=== PATIENT | male | born 1950 | race African-American/Black ===

== ENCOUNTER 2017-06-01 02:00 | Inpatient (IN) | payer OTHER, BC ==
[2017-06-01] VITALS (9 sets, daily range): BP systolic 127–162; BP diastolic 70–92
[~2017-06-01] VITALS: Ht 160 cm; Wt 65.6 kg
--- NOTE | ~2017-06-01 | EKG ---
[address] [place] [address] ELECTROCARDIOGRAM REPORT Name: JENNIFER DUMAS Room #: 206-P ADM IN M.R.#: [id number] Admission: 06/01/17 Attend Phys: Felix Peng DO Discharge: Date of : 48 Report #: [id number] THIS REPORT FOR: //name// [facility] Test Date: 2017-06-02 Test Time: 06:32:57 Pat Name: JENNIFER DUMAS Department: Room: 206 P Gender: M Mechanical Striper: MONI : 1950 Requested By: Reid Thurman Order Number: [id number] MD: Los Silva Measurements Intervals [place] Rate: 74 P: 53 [place]: 181 QRS: -34 QRSD: 96 T: 23 QT: 382 QTc: 424 Interpretive Statements Sinus rhythm Left ventricular hypertrophy Nonspecific T wave abnormality Compared to ECG 06/01/2017 02:06:44 no significant change was found Electronically Signed On 06-02-2017 8:43:55 VIDEO PRODUCTION INTERN by Los Silva [email or web address] <ELECTRONICALLY SIGNED> By: Los Silva MD, [facility] 06/02/17 0843 1 1 Los Silva MD, [facility] /EPI
--- NOTE | ~2017-06-01 | EKG ---
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: tona : 1950 Requested By: Reid Thurman Order Number: [id number] MD: Los Silva Measurements Intervals [place] Rate: 57 P: -46 [place]: 202 QRS: -29 QRSD: 97 T: -5 QT: 415 QTc: 404 Interpretive Statements Sinus bradycardia Left ventricular hypertrophy Borderline T abnormalities, inferior leads Compared to ECG 06/01/2017 02:06:44 T-wave abnormality less pronounced Electronically Signed On 06-02-2017 8:39:32 PA[employer]MASTER [employer] by Los Silva [email or web address] <ELECTRONICALLY SIGNED> By: Los Silva MD, [facility] 06/02/17 0839 180 180 Los Silva MD, [facility] /EPI
--- NOTE | ~2017-06-01 | EKG ---
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: ROCHELLE : 1950 Requested By: Maryuri Foss Order Number: [id number] MD: Los Silva Measurements Intervals [place] Rate: 81 P: 50 [place]: 179 QRS: -24 QRSD: 96 T: 117 QT: 404 QTc: 469 Interpretive Statements Sinus rhythm RSR' in V1 or V2, probably normal variant Left ventricular hypertrophy Nonspecific T abnormalities, lateral leads Compared to ECG 05/23/2015 13:55:17 No significant change was found Electronically Signed On 06-01-2017 8:41:34 LOOM MECHANIC by Los Silva [email or web address] <ELECTRONICALLY SIGNED> By: Los Silva MD, [facility] 06/01/17 0841 0206 0206 Los Silva MD, [facility] /EPI
--- NOTE | ~2017-06-01 | HC ---
[facility] [place] [address] CONSULTATION Name: JENNIFER DUMAS Room #: 206-P ADM IN M.R.#: [id number] Admission: 06/01/17 Attend Phys: Felix Peng DO Discharge: Date of : 48 Report #: [id number] THIS REPORT FOR: //name// CC: Felix Sam MD DATE OF SERVICE: 06/01/2017 HISTORY OF PRESENT ILLNESS: The patient is a 67-year-old single black male who I was asked to seen in the hospital today after he complained of chest pain. The patient has an extensive past medical history. He had his first coronary stent placed in approximately 2013, at [facility] by my partner Dr. Connell. He then had 2 additional coronary stents placed to the circumflex artery in July 2016. He last saw Dr. Connell in January 2017. The patient is not very active because of chronic back pain. He was doing well until last night, he was at home, felt a pain in his chest, went into his throat. Denied any shortness of breath, diaphoresis, or nausea. He has had no recent fever, cough, or blood in stool. He denied any trauma to his chest. He came to the emergency room and was given nitroglycerin and morphine. The pain eventually resolved. I was asked to see him for further evaluation and treatment. PAST MEDICAL HISTORY: Significant for appendectomy, back surgery, hypertension, diabetes, and hyperlipidemia. MEDICATIONS: Consist of aspirin, Lipitor, glipizide, hydrochlorothiazide, Prinivil, metformin, metoprolol, and Effient. ALLERGIES: He has an intolerance to NIACIN. FAMILY HISTORY: His grandmother had heart disease. SOCIAL HISTORY: He is , lives by himself in [place], [place] with a son. No smoking, no alcohol abuse. 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 REVIEW OF SYSTEMS: He has had no history of stroke, asthma, peptic ulcer disease, liver disease, or kidney disease. He has chronic back pain. He wears glasses. No psychiatric illness. No chronic skin condition. PHYSICAL EXAMINATION: GENERAL: Revealed a middle-aged male, lying in bed, he appeared in no distress. VITAL SIGNS: He had a blood pressure of 170/80, his pulse is 70, and he is afebrile. HEENT: He was anicteric. Conjunctivae are pink. Mucous membranes are moist. NECK: Veins do not appear distended. No carotid bruits. [facility] [address] [place] [address] CONSULTATION Name: JENNIFER DUMAS Room #: 206-P [facility] IN M.R.#: [id number] Admission: 06/01/17 Attend Phys: Felix Peng DO Discharge: Date of : 48 Report #: [id number] CHEST: Clear to auscultation. HEART: Regular rate and rhythm. ABDOMEN: Soft, nontender. EXTREMITIES: Dorsalis pedis pulse 2+ in the right, cannot be palpated on the left. SKIN: Warm and dry. NEUROLOGIC: Nonfocal. LYMPH: No adenopathy. MUSCULOSKELETAL: No joint effusions. his chart, unfortunately the ECG from last night showed a sinus rhythm, early transition, nonspecific ST and T-wave changes compared to previous ECG from May 2015. The T-wave changes are new. Workup in the emergency room last night, he had a portable chest x-ray that showed normal heart size, clear lung kasper. His lab work, sodium 138, potassium 4.3, his BUN was 24, creatinine 1.5, and glucose was 206. Troponin 0.04. His white blood cell count 8.7 and hemoglobin 12.1. IMPRESSION AND RECOMMENDATIONS: 1. Possible unstable angina. Recommend repeat cardiac catheterization. 2. History of coronary artery stents. The patient is on aspirin and Effient. 3. Hypertension. The patient is on a beta aruna and MEEK inhibitor. 4. Diabetes. 5. Hyperlipidemia. The patient is on a statin drug. 6. Chronic kidney disease. 7. Chronic back pain. <ELECTRONICALLY SIGNED> By: Reid Thurman MD, [facility] 06/02/17 0829 0829 1153 Reid Thurman MD, FAC /nt
--- NOTE | ~2017-06-01 | CATHLAB ---
[facility] [email or web address] [address] INVASIVE PROCEDURE REPORT Name: JENNIFER DUMAS Room #: 206-P [facility] IN [facility].#: [id number] Admission: 06/01/17 Attend Phys: Felix Peng, Discharge: 06/02/17 Date of : 48 Date of Service: 06/02/17 1205 Report #: [id number] THIS REPORT FOR: //name// APPROVED REPORT Patient Details Patient Status: In-Patient Room #: The patient is a 67 year-old male Event Personnel Reid Thurman Living Manager, Tasneem Romo, Milagros Murdock Knisely, Ceola RN RN, Luis Carbone RN, Marya Simon RN RN, Peggy Hendrix RN configuration specialist Performed Art Access - R radial artery Art Access - R femoral artery* 76658 Initial Mod Sed Same Phys/QHP Gr5y 339960 Left Heart Cath w/or w/o Coronaries [id number] [facility] [address] Place w/wo Plasty Single CIRC 970380 Hemostasis w/ Angioseal Hemostasis with Hemoband Indication Abnormal ECG, Unstable angina , Chest pain Risk Factors Arterial Hypertension, Hypercholesterolemia, Coronary Artery Disease, Diabetes Previous Procedures/Diagnoses Previous PCI Admission/Lab Medications/Medications given during procedure Heparin Unfract. Procedure Narrative The patient was brought electively to the Cardiac Catheterization Laboratory and was prepped and draped in a sterile manner. The Right wrist^ was infiltrated with 1% Lidocaine subcutaneous anesthesia. A PINNACLE 6FR Sheath #[id number] sheath was inserted into the right radial artery. Coronary angiography was performed using coronary diagnostic catheters. The right coronary system was accessed and visualized with a JR 4 catheter. The left coronary system was accessed and visualized with a JL 3.5 catheter. Left ventricular/Aortic Valve gradient assessed via catheter pullback. Pre-demployment femoral angiogram was performed . Closure device was deployed with a 6 Fr Angioseal. The [facility] [employer] [place] [address] INVASIVE PROCEDURE REPORT Name: JENNIFER DUMAS Room #: 206-P [facility] IN [facility].#: [id number] Admission: 06/01/17 Attend Phys: Felix Peng, Discharge: 06/02/17 Date of : 48 Date of Service: 06/02/17 1205 Report #: [id number] patient tolerated the procedure well and there were no complications associated with the procedure. There was no hematoma. Diagnostic cath performed from the right radial artery. However, the takeoff of the left main was difficult to cannulate, and the stenosis represented restenosis of a birfurcation stent. Therefore it was decided to perform intervention from the right femoral artery. A vascband was placed over the right radial artery at the end of the procedure. Intraoperative Conscious Sedation Sedation start time: 15:58 Case end Time: 17:28 Fentanyl 25 mcg Versed 1.5 mg Fluoro Time: 15.55 minutes Dose: DAP 60017.30 cGycm2 1418 mGy Contrast Type and Amount: Omnipaque 250 ml Coronary Angiography The patient's coronary anatomy is right dominant. Diagnostic Cath Left Main 0% stenosis LAD 0% stenosis Circumflex Long stent noted in the mid circumflex that crossed the takeoff of a large second marginal branch. 60% restenosis noted of the distal portion of the stent OM2 Ostial stent had 99% restenosis Right Coronary 60% proximal and 60% mid stenosis noted Left Ventriculography Left Ventriculography was not performed. Hemodynamics The aortic pressure is 109/57 mmHg with a mean of 83 mmHg. The left ventricular pressure is 132/17 mmHg with a mean of mmHg. The left ventricular end diastolic pressure is 24 mmHg. There was no gradient across the aortic valve upon pullback. Pullback from the left ventricle to the aorta revealed no gradient across the aortic valve. PCI Technique Lesion Anticoagulation was achieved with Heparin. the patient had been on effient and asa chronically Percutaneous coronary intervention was performed on the second obtuse marginal branch segment. The lesion stenosis prior to intervention was 99% with MARSHA 3 flow. [employer] [address] [place] [address] INVASIVE PROCEDURE REPORT Name: ALESIAJENNIFER ELAINA Room #: 206-P [facility] IN M.R.#: [id number] Admission: 06/01/17 Attend Phys: Felix Peng, Discharge: 06/02/17 Date of : 48 Date of Service: 06/02/17 1205 Report #: [id number] XB 3 #[id number] Guide Catheter was used to engage the lm ostium. A BMW Wire .014 X 190CM #[id number] Interventional Guidewire was used to cross the lesion. BALLOON DILATION A Balloon catheter TREK RX 2.50 X 8 #[id number] was inserted and inflated up to 8.00atm for 7seconds. Repeat angiography revealed the following post-dilatation results: 60% stenosis. Additional Inflation: 10.00atm for 10seconds. Additional Inflation: 10.00atm for 11seconds. STENT DEPLOYMENT A drug-eluting stent RESOLUTE RX 2.5 X 14 #[id number] was inserted and inflated up to 8.00atm for 15seconds. Repeat angiography revealed the following post-stent deployment results: 0% stenosis. After stent placement in ostium of the second marginal branch, it was decided to perform kissing balloon angioplasty of the circumflex and marginal branch POST STENT DEPLOYMENT BALLOON DILATION A Balloon catheter TREK RX 2.5 X 12 #[id number] was inserted and inflated up to 8.00atm for 16seconds. Repeat angiography revealed the following post-dilatation results: 0% stenosis. Additional Inflation: 8.00atm for 15seconds. Final angiography reveals 0 % stenosis with MARSHA 3 flow. Conclusion 1. 60% restenosis of a stent in the mid circumflex artery, and 99% restenosis of a stent in the ostium of the second marginal branch 2. 60% proximal and 60% mid stenosis of the RCA 3. Following placement of a new drug eluting stent in the ostium of the second marginal branch, and final kissing balloon angioplasty of the circumflex and marginal branch, there was 0% residual stenosis Recommendations Cardiac Rehabilitation Referral Aggressive Medical Therapy <ELECTRONICALLY SIGNED> By: Reid Thurman MD, [facility] 06/02/17 1205 04 04 Reid Thurman MD, FACC /INF
[~2017-06-01 02:00] MED LIST: ACTOS 45 MG45 M1 PO; ANTIVERT25 MG PO; ASPIR 8181 MG PO; CO Q-1010 MG PO; CO Q-1050 MG PO; D3 DOTS2000 UNIT PO; EFFIENT10 MG PO; FISH OIL 1,001000 M2 PO; FISHOIL PO; GLUCOPHAGE1000 MG; GLUCOPHAGE1000 MG PO; GLUCOTROL XL10 MG PO; GLUCOTROL10 MG PO; HYDROCHLOROTH12.5 MG PO; IMDUR 30 MG TAB30 M1 PO; IMDUR 60 MG TAB60 M1 PO; IMDUR30 MG PO; KRILL OIL 3001 EACH PO; KRILL OIL500 MG PO; LIPITOR20 MG PO; LISINOPRIL20 MG PO; NITROGLYCERIN0.4 MG SL; NITROSTAT0.4 MG SUBLING; ONGLYZA5 MG PO; SIMVASTATIN40 MG PO; TOPROL XL50 MG PO; TYLENOL325 MG PO; VITAMIN C1000 MG PO; VITAMIN C120 GM PO; VITAMIN C500 M1 PO; VITAMIN D32000 UNI1 PO; VITAMINC500 PO; XANAX 0.5 MG0.5 M1 PO; ZETIA10 MG PO; ZOCOR20 MG PO; ZOFRAN ODT4 MG PO
[2017-06-01 02:42] LABS: ABSOLUTE NEUTROPHILS 3.3 thou/uL (1.4-8.2); BASOPHILS 0.9 % (0.0-2.0); EOSINOPHILS 6.5 % (0.0-3.0); HEMATOCRIT 33.7 % (42.0-52.0); HEMOGLOBIN 12.1 gm/dL (14.0-18.0); LYMPHOCYTES 47.4 % (24.0-44.0); MCH 29.7 pg (26.0-34.0); MCHC 35.8 g/dL (28.0-37.0); MCV 83.1 fL (80.0-100.0); MONOCYTES 7.4 % (1.0-8.0); PLATELET COUNT 218 thou/uL (150-400); POLYS 37.8 % (36.0-66.0); RBC 4.06 mil/uL (4.50-6.00); RDW 14.5 % (10.5-14.5); WBC 8.7 thou/uL (4.0-11.0)
[2017-06-01 02:46] LABS: ANION GAP 11 mmol/L (7-16); BUN 24 mg/dL (7-18); CALCIUM 9.3 mg/dL (8.5-10.1); CHLORIDE 102 mmol/L (98-107); CO2 25 mmol/L (21-32); CREATININE 1.5 mg/dL (0.7-1.3); GLUCOSE 206 mg/dL (74-106); POTASSIUM 4.3 mmol/L (3.5-5.1); SODIUM 138 mmol/L (136-145)
[2017-06-01] MEDS ORDERED: IMDUR 30 MG TAB30 M1 PO (02:52)
[2017-06-01] MEDS ORDERED: METFORMIN HCL500 MG PO (02:53)
[2017-06-01 02:55] LABS: TROPONIN-I < 0.04 ng/mL (<0.06)
[2017-06-01] MEDS ORDERED: EFFIENT10 MG PO (02:55)
[2017-06-01] MEDS ORDERED: LIPITOR 20 MG T20 M1 PO (04:06)
[2017-06-02 02:59] LABS: HEMATOCRIT 32.5 % (42.0-52.0); HEMOGLOBIN 11.5 gm/dL (14.0-18.0); MCH 29.4 pg (26.0-34.0); MCHC 35.5 g/dL (28.0-37.0); MCV 82.6 fL (80.0-100.0); RBC 3.93 mil/uL (4.50-6.00); RDW 14.2 % (10.5-14.5); WBC 8.6 thou/uL (4.0-11.0)
[2017-06-02 03:17] LABS: CALCIUM 8.5 mg/dL (8.5-10.1); CREATININE 1.3 mg/dL (0.7-1.3); POTASSIUM 4.3 mmol/L (3.5-5.1); TROPONIN-I 0.15 ng/mL (<0.06)
[2017-06-02 05:47] VITALS: BP 160/73
[2017-06-02 07:39] VITALS: BP 157/82
[2017-06-02 10:48] VITALS: BP 157/82
== END 2017-06-02 11:09 | disposition home or self-care (01) | DRG 246 ==
LOC: ER 02:00 → EROBS 03:20 → 2N 03:20
PROVIDERS: Emergency Medicine; Nurse Practitioner Family
PROC: 027034Z Dilation of Coronary Artery, One Artery with Drug-eluting Intraluminal Device, Percutaneous Approach (ICD-10-PCS; principal; 2017-06-02)
PROC: 4A023N7 Measurement of Cardiac Sampling and Pressure, Left Heart, Percutaneous Approach (ICD-10-PCS; principal; 2017-06-02)
PROC: B2111ZZ Fluoroscopy of Multiple Coronary Arteries using Low Osmolar Contrast (ICD-10-PCS; principal; 2017-06-02)
DX: T82.855A Stenosis of coronary artery stent, initial encounter (principal); N17.0 Acute kidney failure with tubular necrosis; I25.110 Atherosclerotic heart disease of native coronary artery with unstable angina pectoris; E11.22 Type 2 diabetes mellitus with diabetic chronic kidney disease; Z90.49 Acquired absence of other specified parts of digestive tract; E78.5 Hyperlipidemia, unspecified; N18.9 Chronic kidney disease, unspecified; I12.9 Hypertensive chronic kidney disease with stage 1 through stage 4 chronic kidney disease, or unspecified chronic kidney disease; G89.29 Other chronic pain; M54.9 Dorsalgia, unspecified; Z88.1 Allergy status to other antibiotic agents; Z82.49 Family history of ischemic heart disease and other diseases of the circulatory system; Z95.5 Presence of coronary angioplasty implant and graft
CPT/HCPCS: 10081

== ENCOUNTER 2018-04-03 12:11 | Inpatient (IN) | payer OTHER, BC ==
[~2018-04-03] VITALS: Ht 160 cm; Wt 69.4 kg
[~2018-04-03 12:11] MED LIST changes: +LIPITOR 20 MG T20 M1 PO; +METFORMIN HCL500 MG PO; +VITAMIN D1000 UNI1 PO; -VITAMIN D32000 UNI1 PO
[2018-04-03 12:12] VITALS: BP 165/78
[2018-04-03 12:44] LABS: ABSOLUTE NEUTROPHILS 2.7 thou/uL (1.4-8.2); BASOPHILS 1.2 % (0.0-2.0); EOSINOPHILS 6.5 % (0.0-3.0); HEMATOCRIT 33.3 % (42.0-52.0); HEMOGLOBIN 11.8 gm/dL (14.0-18.0); LYMPHOCYTES 38.7 % (24.0-44.0); MCHC 35.5 g/dL (28.0-37.0); MCV 84.3 fL (80.0-100.0); MONOCYTES 7.6 % (1.0-8.0); PLATELET COUNT 221 thou/uL (150-400); RBC 3.95 mil/uL (4.50-6.00); RDW 13.5 % (10.5-14.5); WBC 5.9 thou/uL (4.0-11.0)
[2018-04-03 12:52] LABS: ANION GAP 8 mmol/L (7-16); BUN 22 mg/dL (7-18); CALCIUM 9.4 mg/dL (8.5-10.1); CHLORIDE 100 mmol/L (98-107); CO2 29 mmol/L (21-32); CREATININE 1.6 mg/dL (0.7-1.3); GLUCOSE 325 mg/dL (74-106); POTASSIUM 4.3 mmol/L (3.5-5.1); SODIUM 137 mmol/L (136-145)
[2018-04-03 13:02] LABS: ALBUMIN 3.8 g/dL (3.4-5.0); MAGNESIUM 1.3 mg/dL (1.8-2.4); SGOT 15 U/L (15-37); SGPT 17 U/L (30-65); TOTAL BILIRUBIN 0.5 mg/dL (<0.1-1.0); TOTAL PROTEIN 7.3 g/dL (6.4-8.2); TROPONIN-I <0.06 ng/mL (<0.06)
[2018-04-03 15:24] VITALS: BP 127/68
--- NOTE | 2018-04-03 15:25 | NUR ---
HAND OFF FAXED
--- NOTE | 2018-04-03 15:42 | 2DMMODE ---
[facility] [address] [place] [address] 2 D/M-MODE ECHOCARDIOGRAM Name: JENNIFER DUMAS Room #: 170-1 [facility] IN [facility]#: [id number] Admission: 04/03/18 Attend Phys: Mannie Linda, Discharge: Date of : 48 Date of Service: 04/03/18 1541 Report #: [id number] THIS REPORT FOR: //name// APPROVED REPORT Study performed: 04/03/2018 14:33:15 EXAM: Comprehensive 2D, Doppler, and color-flow Echocardiogram Patient Location: In-Patient Room #: ER 1 Status: routine BSA: 1.71 HR: 65 bpm BP: 138/62 mmHg Rhythm: NSR Other Information Study Quality: Excellent Indications Diabetes CAD Chest Pain Hypertension/HDD 2D Dimensions RVDd: 24.23 mm IVSd: 10.82 (7-11mm) LVOT Diam: 21.75 (18-24mm) LVDd: 38.44 mm PWd: 9.96 (7-11mm) Ascending Ao: 28.74 (22-36mm) LVDs: 25.92 (25-40mm) Aortic Root: 28.88 mm IVC: 6.00 mm Volumes Left Atrial Volume (Systole) Single Plane 4CH: 41.36 mL Single Plane 2CH: 32.47 mL LA ESV Index: 23.00 mL/m2 Aortic Valve AoV Peak To.: 1.11 m/s AO Peak Gr.: 4.89 mmHg LVOT Max P.63 mmHg LVOT Max V: 0.95 m/s ZULLY Vmax: 3.20 cm2 Mitral Valve [facility] [address] [place] [address] 2 D/M-MODE ECHOCARDIOGRAM Name: ALESIAJENNIFER DELANEY Room #: 170-1 [facility] IN [facility]#: [id number] Admission: 04/03/18 Attend Phys: Mannie Linda, Discharge: Date of : 48 Date of Service: 04/03/18 1541 Report #: [id number] E/A Ratio: 0.7 MV Decel. Time: 214.33 ms MV E Max To.: 0.65 m/s MV A To.: 0.90 m/s MV PHT: 62.16 ms IVRT: 107.27 ms Pulmonary Valve PV Peak To.: 0.87 m/s PV Peak Gr.: 3.04 mmHg Pulmonary Vein P Vein S: 0.43 m/s P Vein A: 0.40 m/s P Vein D: 0.30 m/s P Vein A Dur.: 101.5 msec P Vein S/D Ratio: 1.43 Tricuspid Valve RAP Estimate: 5.00 mmHg Left Ventricle The left ventricle is normal size. There is normal left ventricular wall thickness. The left ventricular systolic function is normal. The left ventricular ejection fraction is within the normal range. LVEF is 55%. Mild diastolic dysfunction is present (impaired relaxation pattern). Right Ventricle The right ventricle is normal size. The right ventricular systolic function is normal. Atria The left atrium size is normal. The right atrium size is normal. Aortic Valve Mild aortic valve sclerosis. Trace aortic regurgitation. There is no aortic valvular stenosis. Mitral Valve The mitral valve is normal in structure. Trace mitral regurgitation. No evidence of mitral valve stenosis. Tricuspid Valve The tricuspid valve is normal in structure. Trace tricuspid regurgitation. Unable to assess PA pressure. Pulmonic Valve [facility] [address] [place] [address] 2 D/M-MODE ECHOCARDIOGRAM Name: JENNIFER DUMAS Room #: 170-1 ADM IN M.R.#: [id number] Admission: 04/03/18 Attend Phys: Mannie Linda, Discharge: Date of : 48 Date of Service: 04/03/18 1541 Report #: [id number] The pulmonary valve is normal in structure. Trace to mild pulmonic regurgitation. Great Vessels The aortic root is normal in size. IVC is normal in size and collapses >50% with inspiration. Pericardium There is no pericardial effusion. <Conclusion> The left ventricular systolic function is normal. The left ventricular ejection fraction is within the normal range. <ELECTRONICALLY SIGNED> By: Reid Thurman MD, [facility] 04/03/18 1541 1541 154 Reid Thurman MD, FAC /INF
[2018-04-03 15:45] VITALS: BP 121/60
[2018-04-03 15:55] LABS: ALBUMIN 3.8 g/dL (3.4-5.0); TOTAL PROTEIN 7.3 g/dL (6.4-8.2)
[2018-04-03 16:03] LABS: INR 1.1
[2018-04-03 16:21] LABS: TSH 1.575 uIU/mL (0.358-3.740)
[2018-04-03 17:12] VITALS: BP 134/70
[2018-04-03 18:10] LABS: HEMATOCRIT 32.8 % (42.0-52.0); HEMOGLOBIN 11.7 gm/dL (14.0-18.0); MCH 29.9 pg (26.0-34.0); MCHC 35.6 g/dL (28.0-37.0); MCV 83.9 fL (80.0-100.0); RBC 3.91 mil/uL (4.50-6.00); RDW 13.9 % (10.5-14.5); WBC 6.5 thou/uL (4.0-11.0)
--- NOTE | 2018-04-03 18:17 | NUR ---
TO THE UBNIT FROM THE ER - ADMISSION ASSESSMENT CHARTED - PT TO THE OVEN DAUBER IN THE AM - NO CO'S OF PAIN OR NAUSEA. APPEARS TO BE COMFROTABLE AT THE PRESENT TIME.
[2018-04-03 19:36] VITALS: BP 142/68
[2018-04-03 23:38] VITALS: BP 166/72
[2018-04-04 03:04] VITALS: BP 156/76
[2018-04-04 05:22] LABS: HEMATOCRIT 33.5 % (42.0-52.0); HEMOGLOBIN 11.5 gm/dL (14.0-18.0); MCH 29.1 pg (26.0-34.0); MCHC 34.4 g/dL (28.0-37.0); MCV 84.5 fL (80.0-100.0); RBC 3.96 mil/uL (4.50-6.00); RDW 13.4 % (10.5-14.5); WBC 6.9 thou/uL (4.0-11.0)
[2018-04-04 05:39] LABS: CALCIUM 9.5 mg/dL (8.5-10.1); CREATININE 1.6 mg/dL (0.7-1.3); MAGNESIUM 1.7 mg/dL (1.8-2.4); POTASSIUM 3.9 mmol/L (3.5-5.1)
[2018-04-04 05:53] LABS: CHOLESTEROL 101 mg/dL (<200); HDL CHOLESTEROL 30 mg/dL (>40); LDL CHOLESTEROL 49 mg/dL (<100); TC:HDL 3.4 Ratio (Not establshd); TRIGLYCERIDE 112 mg/dL (<150); VLDL 22 mg/dL (<40)
[2018-04-04 06:00] LABS: SERUM ASSESSMENT Clear
--- NOTE | 2018-04-04 06:25 | NUR ---
ASSUMED PT CARE AT 1900 WITH BEDSIDE REPORT COMPLETED. NO SIGN OF DISTRESS NOTED IN PT. PT IS ALERT AND ORIENTED WITH FAMILY AT BEDSIDE. PT DENIES ANY CHEST PAIN. SCHEDULED MED ADMINISTERED TO PT, PT IS NPO FOR POSSIBLE CARDIAC CATH. DENIES ANY NEEDS, ASSESSMENT COMPLETED. DENIES ANY FURTHER NEED AT THIS TIME
[2018-04-04 08:00] VITALS: BP 148/75
--- NOTE | 2018-04-04 08:12 | EKG ---
[address] [address] ELECTROCARDIOGRAM REPORT Name: JUANCARLOSJENNIFER Room #: 200-I ADM IN M.R.#: [id number] Admission: 04/03/18 Attend Phys: Mannie iLnda MD Discharge: Date of : 48 Report #: [id number] THIS REPORT FOR: //name// [facility] ED Test Date: 2018-04-03 Test Time: 12:16:14 Pat Name: JENNIFER DUMAS Department: Room: 200 Gender: M Liberal Arts Dean: AKOSUA : 1950 Requested By: Juancarlos Viera Order Number: [id number] MD: Los Silva Measurements Intervals [place] Rate: 70 P: -57 [place]: 191 QRS: -31 QRSD: 99 T: 14 QT: 378 QTc: 408 Interpretive Statements Sinus or ectopic atrial rhythm Left ventricular hypertrophy Compared to ECG 06/02/2017 06:32:57 No significant change was found Electronically Signed On 04-04-2018 8:12:09 MILK PICKUP DRIVER by Los Silva [email or web address] <ELECTRONICALLY SIGNED> By: Los Silva MD, [facility] 12/811 15 15 Los Silva MD, [facility] /EPI
[2018-04-04 12:37] VITALS: BP 117/65
[2018-04-04] MEDS ORDERED: GLUCOPHAGE1000 MG PO (13:18)
[2018-04-04] MEDS ORDERED: IRON325 PO (13:18)
--- NOTE | 2018-04-04 16:01 | CATHLAB ---
[facility] [place] [place] [address] INVASIVE PROCEDURE REPORT Name: ALESIAJENNIFER ELIANA Room #: 200-I ADM IN [facility].#: [id number] Admission: 04/03/18 Attend Phys: Mannie Linda, Discharge: Date of : 48 Date of Service: 04/04/18 1601 Report #: [id number] THIS REPORT FOR: //name// APPROVED REPORT Study performed: 04/04/2018 13:20:29 Patient Details Patient Status: In-Patient Room #: The patient is a 68 year-old male Event Personnel Reid Thurman Underpresser Hand, Ray Squires RN RN, Reid Shelton, Hina Newton Monitor Procedures Performed Art Access - R femoral artery* 32940 Initial Mod Sed Same Phys/QHP Gr5y 384992 24098 Mod Sed Same Phys/QHP Ea 892016 Left Heart Cath w/or w/o Coronaries 9914481 C PTCA Single Vessel OM 5400836 [place] Hemostasis w/ Angioseal Indication Unstable angina , Chest pain Risk Factors Arterial Hypertension, Hypercholesterolemia, Diabetes Previous Procedures/Diagnoses Previous PCI Admission/Lab Medications/Medications given during procedure Glycoprotein IllbIlla Inhibitors, Heparin Unfract. Procedure Narrative The patient was brought electively to the Cardiac Catheterization Laboratory and was prepped and draped in a sterile manner. The Right Groin^ was infiltrated with 1% Lidocaine subcutaneous anesthesia. A PINNACLE 6FR Sheath #[id number] sheath was inserted into the RFA^. Coronary angiography was performed using coronary diagnostic catheters. The right coronary system was accessed and visualized with a JR 4 catheter. The left coronary system was accessed and visualized with a JL 4 catheter. The left ventricle was accessed and visualized with a JR 4 catheter. Left ventricular/Aortic Valve gradient assessed via catheter pullback. Pre-demployment femoral angiogram was [facility] [place] [address] INVASIVE PROCEDURE REPORT Name: JENNIFER DUMAS Room #: 200-I [facility] IN [facility]#: [id number] Admission: 04/03/18 Attend Phys: Mannie Linda, Discharge: Date of : 48 Date of Service: 04/04/18 1601 Report #: [id number] performed . Closure device was deployed with a 6 Fr Angioseal. The patient tolerated the procedure well and there were no complications associated with the procedure. There was no hematoma. Intraoperative Conscious Sedation Sedation start time: 14:30 Case end Time: 15:15 Fentanyl 50 mcg Versed --2 mg Fluoro Time: 4.10 minutes Dose: DAP 2948.00 cGycm2 340 mGy Contrast Type and Amount: Visipaque 110 ml Coronary Angiography The patient's coronary anatomy is right dominant. Diagnostic Cath Left Main 0% stenosis LAD 30% mid stenosis Circumflex mid stent without restenosis OM2 proximal stent with 90% restenosis and thrombus Right Coronary proximal stent without restenosis. 80% stenosis noted in the mid rca, and 50% in the distal rca Left Ventriculography Left Ventriculography was not performed. Hemodynamics The aortic pressure is 149/61 mmHg with a mean of 94 mmHg. The left ventricular pressure is 156/18 mmHg with a mean of mmHg. The left ventricular end diastolic pressure is 20 mmHg. There was no gradient across the aortic valve upon pullback. Pullback from the left ventricle to the aorta revealed no gradient across the aortic valve. PCI Technique Lesion Anticoagulation was achieved with Heparin. iv integrelin given Percutaneous coronary intervention was performed on the second obtuse marginal branch segment. The lesion stenosis prior to intervention was 90% with MARSHA 3 flow. A [place] 6FR XB 3 #[id number] Guide Catheter was used to engage the lm ostium. A BMW Wire .014 X 190CM #907653 Interventional Guidewire was used to cross the lesion. BALLOON DILATION A Balloon catheter TREK RX 2.5 X 12 #[id number] was inserted and inflated up to 12.00atm for 19seconds. Repeat angiography revealed the [facility] [address] [place] [address] INVASIVE PROCEDURE REPORT Name: JENNIFER DUMAS Room #: 200-I [facility] IN ..#: [id number] Admission: 04/03/18 Attend Phys: Mannie Linda, Discharge: Date of : 48 Date of Service: 04/04/18 1601 Report #: [id number] following post-dilatation results: 0% stenosis. Additional Inflation: 16.00atm for 23seconds. Additional Inflation: 17.00atm for 16seconds. Thrombus noted at start of procedure but none seen following PTCA. Final angiography reveals 0 % stenosis with MARSHA 3 flow. Conclusion 1. no restenosis noted of stent in the circumflex, but 90% stenosis of stent in the second marginal branch with thrombus 2. no restenosis noted of stent in the proximal rca, but 80% stenosis in the mid rca 3. successful PTCA of stent in the 2nd marginal branch Recommendations 1. plan staged stenting of mid rca at a later date Medications Administered Ticagrelor <ELECTRONICALLY SIGNED> By: Reid Thurman MD, FACC 04/04/18 160 160 160 Reid Thurman MD, FACC /INF
--- NOTE | 2018-04-04 16:27 | NUR ---
ASSESSMENT CHARTED - MEDS A PER MAR - NO CO'S OF PAIN OR NAUSEA. PT GIVEN CLEAR LIQUID DIET AND THEN MADE NPO FOR CATH THIS AFTERNOON. PT BLOOD SUGAR NOT COVERED DUE TO NPO STATUS. PY UP AD ROSELIA IN ROOM. TO CATH @ 1400. PT RETUNRNED FROM CATH - VSS - SALINE AND INTEGRILLIN RUNNING ORDERED. GROIN SITE STABLE WITH ANGIOSEAL INSITU - PT ABLE TO BE OFF BEDREST @ 1915. GEORGE DIET AND FLUIDS. BROTHER AT THE BEDSIDE - PATIENT AWAKE AFTER PROCEDURE. NO CO'S AT THE PRESENT
--- NOTE | 2018-04-04 17:27 | EKG ---
[address] [place] [address] ELECTROCARDIOGRAM REPORT Name: JENNIFER DUMAS Room #: 200-I ADM IN M.R.#: [id number] Admission: 04/03/18 Attend Phys: Mannie Linad MD Discharge: Date of : 48 Report #: [id number] THIS REPORT FOR: //name// [facility] Test Date: 2018-04-04 Test Time: 15:58:20 Pat Name: JENNIFER DUMAS Department: Room: 200 I Gender: M Line Supply: Joaquin RANKIN : 1950 Requested By: Reid Thurman Order Number: [id number] MD: oLs Silva Measurements Intervals [place] Rate: 56 P: 49 ND: 203 QRS: -29 QRSD: 100 T: -29 QT: 419 QTc: 405 Interpretive Statements Sinus rhythm Left ventricular hypertrophy Anterior Q waves, possibly due to LVH Borderline T abnormalities, inferior leads Compared to ECG 04/03/2018 12:16:14 No significant change was found Electronically Signed On 04-04-2018 17:26:52 SHIP ENGINES OPERATING ENGINEER by Los Silva [email or web address] <ELECTRONICALLY SIGNED> By: Los Silva MD, [facility] 04/04/18 1726 1558 1558 Los Silva MD, [facility] /EPI
[2018-04-04 19:13] LABS: GLYCOHEMOGLOBIN (HGB A1C) 9.5 % (4.8-5.6)
[2018-04-04 20:19] VITALS: BP 168/84
[2018-04-05 04:30] VITALS: BP 147/75
[2018-04-05 04:43] LABS: CALCIUM 9.1 mg/dL (8.5-10.1); CREATININE 1.7 mg/dL (0.7-1.3); MAGNESIUM 1.5 mg/dL (1.8-2.4)
[2018-04-05 04:56] LABS: HEMATOCRIT 33.5 % (42.0-52.0); HEMOGLOBIN 11.7 gm/dL (14.0-18.0); MCH 29.3 pg (26.0-34.0); MCHC 34.9 g/dL (28.0-37.0); MCV 84.1 fL (80.0-100.0); RBC 3.99 mil/uL (4.50-6.00); RDW 13.6 % (10.5-14.5); WBC 7.5 thou/uL (4.0-11.0)
--- NOTE | 2018-04-05 05:38 | NUR ---
ASSUMED PT CARE AT 1900 WITH BEDSIDE REPORT COMPLETED. NO SIGN OF DISTRESS NOTED IN PT. PT WAS ON BEDREST FROM CARIDAC CATHERIZATION. RIGHT GROIN INTACT, NO BLEEDING OR HEMATOMA NOTICED UPON ASSESSMENT. PT DENIES GROIN AND CHEST PAIN. BLOOD SUGAR CHECKED, SCHEDULED MEDICATION ADMINISTERED TO PT, DENIES ANY FURTHER NEEDS AT THIS TIME.
--- NOTE | 2018-04-05 07:59 | EKG ---
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: : 1950 Requested By: Reid Thurman Order Number: [id number] MD: Los Silva Measurements Intervals [place] Rate: 70 P: 53 WI: 182 QRS: -28 QRSD: 98 T: 18 QT: 384 QTc: 415 Interpretive Statements Sinus rhythm Left ventricular hypertrophy Anterior Q waves, possibly due to LVH Borderline T abnormalities Compared to ECG 04/04/2018 15:58:20 No significant changes Electronically Signed On 04-05-2018 7:59:10 CALCULATION REVIEWER by Los Silva [email or web address] <ELECTRONICALLY SIGNED> By: Los Silva MD, [facility] 04/05/18 0759 7 7 Los Silva MD, [facility] /EPI
[2018-04-05 08:00] VITALS: BP 168/90
[2018-04-05] MEDS ORDERED: BRILINTA90 MG PO (09:32)
--- NOTE | 2018-04-05 10:32 | NUR ---
PT'S MG HIGH, DR. JARA ORDERED MG IV BEFORE DISCHARGE
[2018-04-05 11:16] VITALS: BP 168/90
[2018-04-05 11:43] VITALS: BP 150/70
--- NOTE | 2018-04-05 16:58 | HC ---
[facility] [place] [address] CONSULTATION Name: JENNIFER DUMAS SR Room #: 200-I [facility] IN ..#: [id number] Admission: 04/03/18 Attend Phys: Mannie Linda MD Discharge: 04/05/18 Date of : 48 Report #: [id number] THIS REPORT FOR: //name// CC: Reid Sam MD DATE OF SERVICE: 04/03/2018 CARDIOLOGY CONSULTATION HISTORY OF PRESENT ILLNESS: The patient is a 68-year-old single black male who I was asked to see in the hospital after he complained of chest pain. The patient had apparently a balloon angioplasty at [facility] approximately 10 years ago. He had his first stent placed in 2013 at [facility] in the circumflex artery by Dr. Connell. He had 2 additional stents placed in the circumflex artery in July 2016. He was admitted here to [facility] in May 2017 complaining of chest pain. I actually performed repeat cardiac catheterization in May from the right radial artery; however, because of the abnormal takeoff of the left main artery, it was decided to perform intervention from the right femoral artery. There was a long stent in the circumflex across the takeoff of a large second marginal branch. There was 60% restenosis at the distal portion of the stent. The marginal branch had an ostial 99% stenosis. The right coronary had a 60% stenosis. Left ventriculography was not performed. I performed angioplasty of the second marginal branch. A single drug-eluting stent was placed in the marginal branch. Kissing balloon angioplasty was then performed of the circumflex and the marginal branch. There was 0% residual narrowing following stenting. He was then discharged. He notes that since his discharge, he was actually admitted to [facility] a month later and had additional stenting. He did well until the past few weeks. He has been having recurrent chest pain. Describes a burning in his chest. It has not necessarily related to any exertion or meals. He can occasionally make some belch. He has taken nitroglycerin that did not seem to help. He denied associated shortness of breath, diaphoresis or nausea. He has had no bleeding. Denied any cough or trauma to his chest. He denies exertional dyspnea, palpitations or syncope. PAST MEDICAL HISTORY: He has had back surgery, appendectomy, hypertension, diabetes, hyperlipidemia. MEDICATIONS: Include aspirin, Lipitor, glipizide, hydrochlorothiazide, Imdur, lisinopril, metformin, metoprolol, Effient. ALLERGIES: HE HAS AN INTOLERANCE TO NIACIN. [facility] [address] [place] [address] CONSULTATION Name: JENNIFER DUMAS Room #: 200-I [facility] IN M.R.#: [id number] Admission: 04/03/18 Attend Phys: Mannie Linda MD Discharge: 04/05/18 Date of : 48 Report #: [id number] FAMILY HISTORY: Significant for diabetes. SOCIAL HISTORY: He is , lives with his son in [place], [place]. 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 No smoking or alcohol abuse. REVIEW OF SYSTEMS: He has had no history of stroke, asthma, peptic ulcer disease, liver disease, kidney disease, cancer, psychiatric illness or chronic skin condition. PHYSICAL EXAMINATION: GENERAL: Revealed a middle-aged black male who appeared in no distress. VITAL SIGNS: Blood pressure 120/60, pulse 70, he is afebrile. HEENT: He is anicteric. Conjunctivae pink. Mucous membranes moist. NECK: Neck veins nondistended. Bilateral carotid bruits were heard. Neck supple. CHEST: Clear to auscultation. CARDIOVASCULAR: Regular rate and rhythm, grade 2 systolic ejection murmur. ABDOMEN: Soft. EXTREMITIES: Had no edema. Dorsalis pedis pulse 1+ bilaterally. SKIN: Warm, dry. NEUROLOGIC: Nonfocal. LYMPHATIC: No adenopathy. MUSCULOSKELETAL: No joint effusion. RADIOLOGICAL DATA: ECG shows a sinus rhythm, left ventricular hypertrophy, repolarization changes. His workup, he had portable chest x-ray in the Emergency Room today that showed normal heart size, clear lung kasper. LABORATORY DATA: Sodium 137, potassium 4.3, BUN 22, creatinine was 1.6, it has been 1.0 in the past. His liver function studies are normal. Troponin 0.06. His white blood cell count 5.9, hemoglobin 11.8. He had a hemoglobin of 11.7 back in 2014. IMPRESSION AND RECOMMENDATIONS: 1. Unstable angina. Recommend repeat cardiac catheterization. 2. Hypertension. The patient has been on a diuretic and MEEK inhibitor and beta aruna. 3. Diabetes. 4. Hyperlipidemia. The patient is on a statin drug addict. 5. Carotid bruit. Recommend Doppler. <ELECTRONICALLY SIGNED> By: Reid Thurman MD, FACC 04/05/18 1658 1742 2214 Reid Thurman MD, FACC /nt
== END 2018-04-05 13:26 | disposition home or self-care (01) | DRG 250 ==
LOC: ER 12:11 → 2N 13:46 → EROBS 13:46 → 2N 16:20
PROVIDERS: Emergency Medicine; Internal Medicine; ADMIT Internal Medicine Cardiovascular Disease
DX: I25.110 Atherosclerotic heart disease of native coronary artery with unstable angina pectoris (principal); I50.33 Acute on chronic diastolic (congestive) heart failure; T82.867A Thrombosis due to cardiac prosthetic devices, implants and grafts, initial encounter; I10 Essential (primary) hypertension; E78.5 Hyperlipidemia, unspecified; I12.9 Hypertensive chronic kidney disease with stage 1 through stage 4 chronic kidney disease, or unspecified chronic kidney disease; E83.42 Hypomagnesemia; E11.22 Type 2 diabetes mellitus with diabetic chronic kidney disease; N18.9 Chronic kidney disease, unspecified; E11.65 Type 2 diabetes mellitus with hyperglycemia; Z95.5 Presence of coronary angioplasty implant and graft; Z90.49 Acquired absence of other specified parts of digestive tract; Z79.82 Long term (current) use of aspirin; Z79.84 Long term (current) use of oral hypoglycemic drugs; Z79.899 Other long term (current) drug therapy; Z88.8 Allergy status to other drugs, medicaments and biological substances; Y83.8 Other surgical procedures as the cause of abnormal reaction of the patient, or of later complication, without mention of misadventure at the time of the procedure; Y92.89 Other specified places as the place of occurrence of the external cause
CPT/HCPCS: 10081

== ENCOUNTER 2018-07-02 10:27 | Emergency (ER) | payer OTHER, BC ==
[~2018-07-02] VITALS: Ht 160 cm; Wt 65.8 kg
[~2018-07-02 10:27] MED LIST changes: +BRILINTA90 MG PO; +IRON325 PO
[2018-07-02 11:03] LABS: ABSOLUTE NEUTROPHILS 3.6 thou/uL (1.4-8.2); BASOPHILS 0.9 % (0.0-2.0); EOSINOPHILS 6.6 % (0.0-3.0); HEMOGLOBIN 11.5 gm/dL (14.0-18.0); LYMPHOCYTES 33.2 % (24.0-44.0); MCH 29.3 pg (26.0-34.0); MCHC 34.8 g/dL (28.0-37.0); MCV 84.2 fL (80.0-100.0); MONOCYTES 7.5 % (1.0-8.0); PLATELET COUNT 269 thou/uL (150-400); POLYS 51.8 % (36.0-66.0); RBC 3.92 mil/uL (4.50-6.00); RDW 13.8 % (10.5-14.5)
[2018-07-02 11:09] LABS: ANION GAP 13 mmol/L (7-16); BUN 48 mg/dL (7-18); CALCIUM 9.7 mg/dL (8.5-10.1); CHLORIDE 101 mmol/L (98-107); CO2 22 mmol/L (21-32); CREATININE 2.3 mg/dL (0.7-1.3); GLUCOSE 323 mg/dL (74-106); POTASSIUM 4.5 mmol/L (3.5-5.1); SODIUM 136 mmol/L (136-145)
[2018-07-02] MEDS ORDERED: GLUCOPHAGE XR500 MG PO (11:12)
[2018-07-02 11:18] LABS: TROPONIN-I <0.06 ng/mL (<0.06)
--- NOTE | 2018-07-02 13:43 | EKG ---
[facility] [place] [address] ELECTROCARDIOGRAM REPORT Name: JENNIFER DUMAS [id number] ������������������ Admission: 07/02/18 ������������������ Attend Phys: Discharge: ������������������ Date of : 48 Report #: [id number] ����������������������������������������������������������������� [id number] THIS REPORT FOR: //name// [facility] ED Test Date: 2018-07-02 Test Time: 10:35:03 Pat Name: JENNIFER DUMAS Department: Room: Gender: Technical Document Writer: LYUDMILA : 1950 Requested By: Maryuri Foss Order Number: [id number] MD: Los Silva Measurements Intervals [place] Rate: 78 P: 51 ND: 192 QRS: -28 QRSD: 102 T: -7 QT: 359 QTc: 409 Interpretive Statements Sinus rhythm Abnormal R-wave progression, early transition Left ventricular hypertrophy Borderline T abnormalities, lateral leads Compared to ECG 04/05/2018 07:18:48 No significant change was found Electronically Signed On 07-02-2018 13:43:17 CDT by Los Silva [email or web address] ��������������������������������������������� <ELECTRONICALLY SIGNED> ���������������������������������������� By: Los Silva MD, [facility] ��������������������������������������������� 07/02/18 1343 1035 103 Los Silva MD, FAC /EPI
[2018-07-02 14:09] VITALS: BP 133/75
== END 2018-07-02 14:12 | disposition home or self-care (01) ==
LOC: ER 10:27
PROVIDERS: Emergency Medicine
DX: R07.89 Other chest pain (principal); I10 Essential (primary) hypertension; E78.5 Hyperlipidemia, unspecified; E11.9 Type 2 diabetes mellitus without complications; Z95.5 Presence of coronary angioplasty implant and graft; Z88.8 Allergy status to other drugs, medicaments and biological substances

== ENCOUNTER 2018-08-08 05:46 | Inpatient (IN) | payer OTHER, BC ==
[2018-08-08] VITALS (7 sets, daily range): BP systolic 128–149; BP diastolic 66–81
[~2018-08-08] VITALS: Ht 170.2 cm; Wt 72.6 kg
--- NOTE | ~2018-08-08 | HC ---
[facility] [place] [address] CONSULTATION Name: ADRIAN DUMAS Room #: 218-P [facility] IN M.R.#: [id number] Admission: 08/08/18 ������������������ Attend Phys: Armando Loving MD Discharge: 08/08/18 ������������������ Date of : 48 Report #: [id number] THIS REPORT FOR: //name// CC: Armando Sam DATE OF SERVICE: 08/08/2018 PRIMARY CARE PHYSICIAN: Dr. Adrian Sam. MANUFACTURING ASSOCIATE: Dr. Joseluis Connell. CHIEF COMPLAINT: Chest pain. HISTORY OF PRESENT ILLNESS: The patient is a 68-year-old male with a history of coronary artery disease. He has been having more shortness of breath with cardiac rehabilitation. He most recently had a PCI this past spring. He was evaluated by Dr. Connell and it was felt that he would have a diagnostic heart catheterization later this week, but this morning, he had onset of chest pressure. It resolved with 3 nitroglycerin, he went to the emergency room. ECG demonstrated a sinus rhythm with nonspecific T-wave abnormalities, unchanged from previous visits. He was admitted for observation. It is noted his lab showed worsening of his kidney function. Since his admission, he was placed on IV fluids. He has remained chest pain free. He denies palpitations or heart racing. He is without orthopnea, PND or weight gain. He denies hematemesis or melena on his Brilinta, which he has been compliant with. PAST MEDICAL HISTORY: Significant for coronary artery disease. Cardiac catheterization on 05/07/2018 showed mild disease in his LAD, 40% circumflex stenosis, there is a 90% stenosis in his right coronary artery, which was successfully treated with a PCI, then he underwent a separate PCI at a different time with PCI to his obtuse marginal stenosis. Ejection fraction has been normal and EF greater than 60%. He has chronic kidney disease, insulin-requiring diabetes, and hyperlipidemia. HOME MEDICATIONS: Include amlodipine 10 mg daily, vitamin C, aspirin [address] [address] CONSULTATION Name: ALESIAADRIAN Room #: 218-P [facility]..#: [id number] Admission: 08/08/18 ������������������ Attend Phys: Armando Loving MD Discharge: 08/08/18 ������������������ Date of : 48 Report #: [id number] daily, Lipitor 20 mg daily, CoQ10, Glucotrol, Imdur 30 mg daily, meclizine, metformin, Toprol XL 50 mg p.o. b.i.d., Brilinta 90 mg p.o. b.i.d., and ranitidine. FAMILY HISTORY: Positive for diabetes. SOCIAL HISTORY: He is a nonsmoker. ALLERGIES: He has allergies to niacin. REVIEW OF SYSTEMS: GENERAL: No fevers or chills. PULMONARY: No wheezing or cough. GASTROINTESTINAL: No nausea, vomiting, hematemesis or abdominal bloating. SKIN: No edema. CARDIOVASCULAR: Positive chest pain. Positive shortness of breath. No orthopnea, no PND. NEUROLOGIC: No syncope or seizures. EYES: Denies blurred vision or loss of vision. PHYSICAL EXAMINATION: VITAL SIGNS: Blood pressure 141/72, pulse 73, and respiratory rate 18. GENERAL: Thin elderly male. He is alert, oriented, no apparent distress. NECK: Supple, no jugular venous distention. CARDIOVASCULAR: Regular. There is no murmur or S3. LUNGS: Clear to auscultation. ABDOMEN: Soft, nontender. EXTREMITIES: No peripheral edema noted. NEUROLOGIC: No focal deficits. LABORATORY DATA: Electrocardiogram shows sinus rhythm with borderline LVH. There is an old study to compare with it on 07/02/2018. There were no ST segment abnormalities otherwise. There is left axis deviation. Hemoglobin is 10.2, white blood cell count is 7.2, platelet count is 263,000. INR is 1.0. Sodium is 138, potassium 4.2, chloride is 4.3, BUN is 31, creatinine is 2.3. Troponin I was 0.09 and 0.14. IMPRESSION: 1. Angina. 2. Coronary artery disease. 3. Chest pain. 4. Dyspnea with exertion. 5. Coronary artery disease. 6. Diabetes. 7. Chronic kidney disease. [address] [address] CONSULTATION Name: ADRIAN DUMAS Room #: 218-P DIS IN M.R.#: [id number] Admission: 08/08/18 ������������������ Attend Phys: Armando Loving MD Discharge: 08/08/18 ������������������ Date of : 48 Report #: [id number] PLAN: The patient's chest pain has resolved. There is a slight cardiac troponin abnormality. However, he has chronic kidney disease and has remained symptom-free. The patient has a planned cardiac catheterization for later this week with his usual global transportation manager that I think is reasonable to proceed with. However, if he has any recurrences of chest pain, he is to return back to the hospital. He will continue with aggressive antiplatelet therapy, stay off diuretics and metformin because of his renal function. ��������������������������������������������� ���������������������������������������� By: ��������������������������������������������� 1816 0635 Adam Lombardi MD, FACC /nt
[2018-08-08] MEDS ORDERED: TOPROL XL50 MG (06:02)
[2018-08-08] MEDS ORDERED: ZANTAC 150MG T150 MG PO (06:03)
[2018-08-08] MEDS ORDERED: BRILINTA90 MG PO (06:03)
[2018-08-08] MEDS ORDERED: IMDUR 30 MG TAB30 M1 PO (06:04)
[2018-08-08 06:05] LABS: ABSOLUTE NEUTROPHILS 3.6 thou/uL (1.4-8.2); BASOPHILS 0.1 % (0.0-2.0); EOSINOPHILS 7.7 % (0.0-3.0); HEMOGLOBIN 10.2 gm/dL (14.0-18.0); LYMPHOCYTES 32.2 % (24.0-44.0); MCH 29.3 pg (26.0-34.0); MCHC 35.1 g/dL (28.0-37.0); MCV 83.4 fL (80.0-100.0); MONOCYTES 10.7 % (1.0-8.0); PLATELET COUNT 263 thou/uL (150-400); POLYS 49.3 % (36.0-66.0); RBC 3.48 mil/uL (4.50-6.00); RDW 13.9 % (10.5-14.5); WBC 7.4 thou/uL (4.0-11.0)
[2018-08-08] MEDS ORDERED: TOPROL XL25 MG PO (06:05)
[2018-08-08] MEDS ORDERED: VITAMINC500 PO (06:07)
[2018-08-08 06:15] LABS: CALCIUM 10.1 mg/dL (8.5-10.1); CREATININE 2.3 mg/dL (0.7-1.3); POTASSIUM 4.3 mmol/L (3.5-5.1)
[2018-08-08 06:26] LABS: TROPONIN-I 0.09 ng/mL (<0.06)
[2018-08-08 06:46] LABS: APTT 26.6 Seconds (24.5-32.8); PROTIME 10.5 Seconds (9.3-11.4)
[2018-08-08] MEDS ORDERED: AMLODIPINE BESY10 MG PO (15:28)
--- NOTE | 2018-08-08 17:08 | EKG ---
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: SHANNAN : 1950 Requested By: [place] Lai Order Number: [id number] MD: Los Silva Measurements Intervals [place] Rate: 75 P: 53 MA: 188 QRS: -27 QRSD: 101 T: 43 QT: 357 QTc: 399 Interpretive Statements Sinus rhythm LVH with secondary repolarization abnormality Septal infarct, age indeterminate Compared to ECG 07/02/2018 10:35:03 [address] change in the ST and T-wave segments Electronically Signed On 08-08-2018 17:08:41 CDT by Los Silva [email or web address] ��������������������������������������������� <ELECTRONICALLY SIGNED> ���������������������������������������� By: Los Silva MD, [facility] ��������������������������������������������� 08/08/18 2856 0551 0551 Los Silva MD, [facility] /EPI
[2018-08-08 17:26] LABS: PROT/CREAT RATIO 0.3; URINE CREATININE-RANDOM* 42.5 mg/dL; URINE PROTEIN-RANDOM* 14.3 mg/dL (<11.9)
[2018-08-08] MEDS ORDERED: IMDUR 60 MG TAB60 M1 PO (19:06)
--- NOTE | 2018-08-08 19:50 | NUR ---
PT LEFT UNIT AT ABOUT 1951 WITH SON. PT STABLE. DAY NURSE COMPLETED DISCHARGE INTERVENTIONS.
--- NOTE | 2018-08-09 11:20 | HC ---
[facility] [place] [address] CONSULTATION Name: JENNIFER DUMAS Room #: 218-P [facility]..#: [id number] Admission: 08/08/18 ������������������ Attend Phys: Armando Loving MD Discharge: 08/08/18 ������������������ Date of : 48 Report #: [id number] THIS REPORT FOR: //name// CC: Armando Sam DATE OF SERVICE: 08/08/2018 ATTENDING PHYSICIAN: Dr. Loving. REASON FOR CONSULTATION: Chronic kidney disease. HISTORY OF PRESENT ILLNESS: This gentleman with longstanding diabetes mellitus has had progressive chronic kidney disease with slowly elevating serum creatinine as well documented in the hospital records with a creatinine of 1.5 over a year ago, up to 1.7 several months ago and now progressing to 2.3. He has no coronary disease, had a coronary stent placed 5 months ago, now has recurrent chest pain, admitted with a slightly elevated troponin and now in line for another heart catheterization. No further information is forthcoming regarding his kidney disease. He had been referred to our office for an outpatient visit later this month. PAST MEDICAL HISTORY: Longstanding diabetes mellitus. He has got just a bit of peripheral neuropathy, no retinopathy known. He has had previous lumbar spine surgery and a previous appendectomy. CURRENT MEDICATIONS: Listed as vitamin D, glipizide 10 mg b.i.d., Lipitor 20 mg daily, iron, aspirin 81 mg daily, coenzyme Q, Glucophage 1000 mg b.i.d., amlodipine 10 mg daily, Zantac 75 mg b.i.d., Brilinta 90 mg b.i.d., Imdur 90 mg b.i.d., Toprol XL 25 mg daily, ascorbic acid. 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 No substantial alcohol or cigarettes. REVIEW OF SYSTEMS: GENERAL: He has been feeling reasonably well and staying active. He has had the intermittent chest pain as mentioned. EYES: His vision is fine. No evidence of retinopathy has been found on examination. ENT: Hearing okay, swallows okay. No mouth sores. ENDOCRINE: Positive for the diabetes. RESPIRATORY: No pleuritic pain, cough, emphysema. CARDIAC: He has had the exertional chest pain as mentioned. GASTROINTESTINAL: No nausea, vomiting, diarrhea or bloody stools. GENITOURINARY: Good urinary stream. No history of prostate disease. No hematuria or renal stone disease. NEUROLOGIC: No history of seizure, syncope or stroke. He has occasional [facility] [address] [place] [address] CONSULTATION Name: JENNIFER DUMAS Room #: 218-P [facility]#: [id number] Admission: 08/08/18 ������������������ Attend Phys: Armando Loving MD Discharge: 08/08/18 ������������������ Date of : 48 Report #: [id number] shooting pains in his legs, possibly neuropathy. MUSCULOSKELETAL: No arthritis. SKIN: No skin rashes, lesions, or ulcers. PHYSICAL EXAMINATION: GENERAL: This is a reasonably well-appearing, comfortable gentleman, currently in no distress. SKIN: Unremarkable. SKELETAL: Shows no joint deformities. HEENT: Extraocular movements are full. No scleral icterus. Hearing and vision are intact. Tongue, buccal mucosa benign. NECK: Supple, no lymphadenopathy, no carotid bruits, no JVD. CHEST: Completely clear to auscultation. HEART: Regular without murmurs, gallops or rubs. ABDOMEN: Soft and nontender. BACK: Shows no edema or CVA tenderness. EXTREMITIES: Show no peripheral edema. NEUROLOGIC: Grossly intact. LABORATORY DATA: Creatinine is 2.3. Sodium 142, potassium 4.3, chloride 106, bicarbonate 23, BUN is 31, hemoglobin is 10.2. No recent urinalysis. Last A1c is 9.5. ASSESSMENT AND PLAN: 1. Chronic kidney disease, almost certainly has diabetic nephropathy. We will check urine protein studies. We will check paraprotein studies. We will check renal sonography for completeness. He is being given some IV fluids. We will give him just some gentle IV fluids to try and prepare him in case he needs another heart catheterization and we will follow along. 2. Diabetes mellitus, longstanding. 3. Hypertension. 4. Coronary artery disease with recurrent angina, status post multiple coronary stents. ��������������������������������������������� <ELECTRONICALLY SIGNED> ���������������������������������������� By: Ever Red MD ��������������������������������������������� 08/09/18 1120 1052 0201 Ever Red MD /nt
[2018-08-09 14:06] LABS: KAPPA FREE LIGHT CHAINS 42.7 mg/L (3.3-19.4); KAPPA/LAMBDA RATIO 1.65 (0.26-1.65); LAMBDA FREE LIGHT CHAINS 25.9 mg/L (5.7-26.3)
[2018-08-10 16:05] LABS: GLOBULIN TOTAL 3.1 g/dL (2.2-3.9); M-SPIKE Not Observed g/dL (Not Observed)
== END 2018-08-08 19:50 | disposition home or self-care (01) | DRG 303 ==
LOC: ER 05:46 → EROBS 07:05 → 2N 09:58
PROVIDERS: Emergency Medicine; Internal Medicine Nephrology; ADMIT Hospitalist
DX: I25.119 Atherosclerotic heart disease of native coronary artery with unspecified angina pectoris (principal); N17.9 Acute kidney failure, unspecified; I12.9 Hypertensive chronic kidney disease with stage 1 through stage 4 chronic kidney disease, or unspecified chronic kidney disease; E11.22 Type 2 diabetes mellitus with diabetic chronic kidney disease; N18.9 Chronic kidney disease, unspecified; E11.42 Type 2 diabetes mellitus with diabetic polyneuropathy; E78.5 Hyperlipidemia, unspecified; I25.2 Old myocardial infarction; Z95.5 Presence of coronary angioplasty implant and graft; Z90.49 Acquired absence of other specified parts of digestive tract; Z79.02 Long term (current) use of antithrombotics/antiplatelets; Z79.84 Long term (current) use of oral hypoglycemic drugs; Z79.899 Other long term (current) drug therapy; Z88.8 Allergy status to other drugs, medicaments and biological substances
CPT/HCPCS: 10081

== ENCOUNTER → 2018-11-22 | Outpatient (CLI) | payer BC, OTHER ==
[~2018-11-22] MED LIST changes: +AMLODIPINE BESY10 MG PO; +TOPROL XL25 MG PO; +TOPROL XL50 MG; +ZANTAC 150MG T150 MG PO
== END ==
LOC: NUC 07:03
DX: I25.10 Atherosclerotic heart disease of native coronary artery without angina pectoris (principal); I10 Essential (primary) hypertension; E78.5 Hyperlipidemia, unspecified; E11.9 Type 2 diabetes mellitus without complications; Z95.5 Presence of coronary angioplasty implant and graft; Z79.899 Other long term (current) drug therapy; Z88.8 Allergy status to other drugs, medicaments and biological substances; Z82.49 Family history of ischemic heart disease and other diseases of the circulatory system

== ENCOUNTER 2019-09-05 14:44 | Inpatient (IN) | payer OTHER, BC ==
[~2019-09-05] VITALS: Ht 160 cm; Wt 65.8 kg
[2019-09-05 14:45] VITALS: BP 158/86
[2019-09-05] MEDS ORDERED: ZESTRIL40 MG PO (15:01)
[2019-09-05 15:25] LABS: ABSOLUTE NEUTROPHILS 3.1 thou/uL (1.4-8.2); BASOPHILS 1.1 % (0.0-2.0); EOSINOPHILS 7.6 % (0.0-3.0); HEMATOCRIT 33.6 % (42.0-52.0); HEMOGLOBIN 11.5 gm/dL (14.0-18.0); LYMPHOCYTES 31.7 % (24.0-44.0); MCH 29.5 pg (26.0-34.0); MCHC 34.3 g/dL (28.0-37.0); MCV 86.2 fL (80.0-100.0); MONOCYTES 7.9 % (1.0-8.0); PLATELET COUNT 240 thou/uL (150-400); POLYS 51.7 % (36.0-66.0)
[2019-09-05 15:33] LABS: ANION GAP 11 mmol/L (7-16); BUN 25 mg/dL (7-18); CHLORIDE 104 mmol/L (98-107); CO2 23 mmol/L (21-32); CREATININE 1.9 mg/dL (0.7-1.3); GLUCOSE 176 mg/dL (74-106); POTASSIUM 4.5 mmol/L (3.5-5.1); SODIUM 138 mmol/L (136-145)
[2019-09-05 15:41] LABS: DIRECT BILIRUBIN < 0.1 mg/dL (<0.1-0.2); SGOT 24 U/L (15-37); SGPT 17 U/L (30-65); TOTAL BILIRUBIN 0.7 mg/dL (<0.1-1.0); TOTAL PROTEIN 7.4 g/dL (6.4-8.2); TROPONIN-I <0.06 ng/mL (<0.06)
[2019-09-05 16:46] VITALS: BP 142/72
[2019-09-05 17:57] VITALS: BP 142/72
--- NOTE | 2019-09-05 18:22 | NUR ---
REC PT FROM ED APPROX 182, NO DIET ORDER DIETARY SAID, NO SANDWICH IN UNIT, CALLED ORDER IN; WILL CHECK AGAIN AND REMEDY IF POSSIBLE. PT IS A&0X4, AMB STEADY, HAD TX LATE 2017-EARLY 2018. NO CP CURRENTLY. CALL LIGHT DEMO DONE, WILL FIND IV POLE AND START IVF AND ENSURE HE GETS FOOD. WILL START ON ADMISSION PROCESS AND ALLOW ONCOMING SHIFT TO FINISH IN BETWEEN CARES OF OTHER PATIENTS. ENCOURAGED PT TO USE CALL LIGHT FOR ANY NEEDS
[2019-09-05 20:15] VITALS: BP 145/78
--- NOTE | 2019-09-05 22:49 | NUR ---
PT ADMITTED FROM ED WITH CHEST PAIN,PRIOR H/O STENT PLACEMENTX4.PT IS A/OX4.VSS.IVF ORDERED.ADMISSION ASSESSMENT COMPLETED DOCUMENTED.PT DENIES CHEST PAIN OR ANY DISTRESS AT THIS TIME.AMBULATED WITH STEADY GAIT TO BR.PT DENIES NEEDS AT THIS TIME.WILL CONT TO MONITOR PER POC.
[2019-09-06 00:45] VITALS: BP 153/74
[2019-09-06 03:37] LABS: ABSOLUTE NEUTROPHILS 2.5 thou/uL (1.4-8.2); BASOPHILS 1.2 % (0.0-2.0); EOSINOPHILS 7.1 % (0.0-3.0); HEMATOCRIT 33.9 % (42.0-52.0); HEMOGLOBIN 11.4 gm/dL (14.0-18.0); LYMPHOCYTES 41.9 % (24.0-44.0); MCH 29.7 pg (26.0-34.0); MCHC 33.6 g/dL (28.0-37.0); MCV 88.3 fL (80.0-100.0); MONOCYTES 7.4 % (1.0-8.0); PLATELET COUNT 220 thou/uL (150-400); POLYS 42.4 % (36.0-66.0); RBC 3.83 mil/uL (4.50-6.00)
[2019-09-06 03:47] LABS: ANION GAP 9 mmol/L (7-16); BUN 24 mg/dL (7-18); CALCIUM 8.9 mg/dL (8.5-10.1); CHLORIDE 105 mmol/L (98-107); CHOLESTEROL 92 mg/dL (<200); CO2 24 mmol/L (21-32); CREATININE 1.9 mg/dL (0.7-1.3); GLUCOSE 111 mg/dL (74-106); HDL CHOLESTEROL 23 mg/dL (>40); LDL CHOLESTEROL 24 mg/dL (<100); MAGNESIUM 1.7 mg/dL (1.8-2.4); POTASSIUM 4.1 mmol/L (3.5-5.1); SODIUM 138 mmol/L (136-145); TRIGLYCERIDE 229 mg/dL (<150); TROPONIN-I <0.06 ng/mL (<0.06); VLDL 46 mg/dL (<40)
[2019-09-06 04:14] LABS: SERUM ASSESSMENT Clear
[2019-09-06 04:45] VITALS: BP 166/76
[2019-09-06 07:30] VITALS: BP 150/71
--- NOTE | 2019-09-06 08:05 | EKG ---
[facility] [place] [address] ELECTROCARDIOGRAM REPORT Name: ADRIAN DUMAS Room #: 219-P ADM IN M.R.#: [id number] Admission: 09/05/19 Attend Phys: Marques Wagner MD Discharge: Date of : 48 Report #: [id number] THIS REPORT FOR: cc: Adrian Sam MD, Michael D. MD Lundgren,Los Irwin MD [facility] ~ THIS REPORT FOR: //name// [facility] ED Test Date: 2019-09-05 Test Time: 14:44:53 Pat Name: ADRIAN DUMAS Department: Room: 219 Gender: M Tube Coater: KIP : 1950 Requested By: Maryuri Foss Order Number: [id number] MD: Los Silva Measurements Intervals [place] Rate: 61 P: 18 OR: 183 QRS: -21 QRSD: 96 T: -30 QT: 393 QTc: 396 Interpretive Statements Sinus rhythm Left ventricular hypertrophy Anterior Q waves, possibly due to LVH Nonspecific T wave abnormality Compared to ECG 08/08/2018 05:51:08 ST and T wave abnormality is less pronounced Electronically Signed On 09-06-2019 8:03:12 CDT by Los Silva [email or web address] <ELECTRONICALLY SIGNED> By: Los Silva MD, FAC 09/06/19 0803 1444 1444 Los Silva MD, [facility] /EPI
[2019-09-06] MEDS ORDERED: NORVASC10 MG PO (08:11)
[2019-09-06 17:00] VITALS: BP 149/73
--- NOTE | 2019-09-06 19:03 | NUR ---
ASSESSMENT DOCUMENTED, AND VSS. PATIENT WAS AT [facility] STRESS TEST MOST OF THE AFTER NOON. STAEDY AND AMBULATING, DENEIS CP OR DISCOMFORT AND WILL CONTINUE WITH POC.
[2019-09-06 20:15] VITALS: BP 142/72
[2019-09-07 04:45] VITALS: BP 139/66
--- NOTE | 2019-09-07 05:35 | NUR ---
ASSESSMENTS CHARTED, MEDS GIVEN CHARTED. PATIENT RESTING IN ROOM DURING SHIFT UP AT [place]. DENIES PAIN. RECEIVING IV FLUIDS. ON ROOM AIR. DID NOT NEED COVERAGE FOR BLOOD GLUCOSE DURING SHIFT. PATIENT IS AWAITING RESULTS OF STRESS TEST. MAY GO HOME TODAY DEPENDING ON RESULTS. FALL PRECAUTIONS IN PLACE DURING SHIFT.
[2019-09-07 08:55] VITALS: BP 162/71
[2019-09-07] MEDS ORDERED: ACETAMINOPHEN325 M1 PO (10:19)
[2019-09-07 11:20] VITALS: BP 156/77
[2019-09-07 12:14] VITALS: BP 156/77
--- NOTE | 2019-09-07 13:45 | NUR ---
ASSESSMENT CHARTED. PT ALERT AND ORIENTED. VSS. DENIED HAVING CHEST PAIN. SEEN BY DR. KNIGHT. ORDERS GIVEN TO DISCHARGE PT TO HOME. DISCHARGE INSTRUCTIONS GIVEN TO PT. PT VERBERLISED UNDERSTANDING.
== END 2019-09-07 13:52 | disposition home or self-care (01) | DRG 303 ==
LOC: ER 14:44 → 2N 16:38 → EROBS 16:38 → 2N 18:25 → ENTRNSPT 09-07 13:22 → 2N 09-07 13:52
PROVIDERS: Emergency Medicine; Nurse Practitioner; ADMIT Internal Medicine
DX: I25.10 Atherosclerotic heart disease of native coronary artery without angina pectoris (principal); E11.22 Type 2 diabetes mellitus with diabetic chronic kidney disease; I12.9 Hypertensive chronic kidney disease with stage 1 through stage 4 chronic kidney disease, or unspecified chronic kidney disease; N18.9 Chronic kidney disease, unspecified; E78.5 Hyperlipidemia, unspecified; K21.9 Gastro-esophageal reflux disease without esophagitis; G89.29 Other chronic pain; M54.9 Dorsalgia, unspecified; Z90.49 Acquired absence of other specified parts of digestive tract; Z95.5 Presence of coronary angioplasty implant and graft; Z88.1 Allergy status to other antibiotic agents; Z79.82 Long term (current) use of aspirin; Z79.899 Other long term (current) drug therapy
CPT/HCPCS: 10081